=== PATIENT | male | born 1975 | race Caucasian/White ===

== ENCOUNTER 2017-10-20 13:39 | Day surgery (SDC) | payer BC ==
[~2017-10-20] VITALS: Ht 193 cm; Wt 93.0 kg
[~2017-10-20 13:39] MED LIST: EPINEPHRINE 1 MG/ML, 1ML ONE; GLUC1CAP18 PO; IBUP-1222 PO; LIDOCAINE 1%, 50ML ONE; ROPIvacaine/PF 0.5%, 30 ML ONE
[2017-10-20 14:00] VITALS: BP 125/81
[2017-10-20] MEDS ORDERED: LACTATED RINGERS 1,000 ML IV SCH (14:03)
[2017-10-20] MEDS ORDERED: FAMOTIDINE 20 MG TABLET ONE (14:09)
[2017-10-20] MEDS ORDERED: ACETAMINOPHEN 500 MG TABLET ONE (14:09)
[2017-10-20] MEDS ORDERED: GABAPENTIN 300 MG CAPSULE ONE (14:10)
[2017-10-20] MEDS ORDERED: MIDAZOLAM 1 MG/ML, 2ML ONE (14:16)
[2017-10-20] MEDS ORDERED: FENTANYL PF 100 MCG/2ML ONE ×2 (14:16→15:36)
[2017-10-20] MEDS ORDERED: OXYcodone IR 5MG TABLET ONE (14:16)
[2017-10-20] MEDS ORDERED: GABAPENTIN 300 MG CAPSULE PO ONE (14:30)
[2017-10-20] MEDS ORDERED: OXYcodone IR 5MG TABLET PO ONE (14:30)
[2017-10-20] MEDS ORDERED: ACETAMINOPHEN 500 MG TABLET PO ONE (14:30)
[2017-10-20] MEDS ORDERED: FAMOTIDINE 20 MG TABLET PO ONE (14:30)
[2017-10-20] MEDS ORDERED: DEXAMETHASONE 4 MG/ML, 1ML ONE (14:38)
[2017-10-20] MEDS ORDERED: CEFAZOLIN 1,000 MG ONE (14:38)
[2017-10-20] MEDS ORDERED: KETOROLAC 30 MG/1 ML ONE (14:38)
[2017-10-20] MEDS ORDERED: PROPOFOL 10 MG/ML, 20ML ONE (14:38)
[2017-10-20] MEDS ORDERED: ONDANSETRON 2MG/ML, 2ML ONE (14:38)
[2017-10-20] MEDS ORDERED: ONDANSETRON 2MG/ML, 2ML IVPush PRN (15:00)
[2017-10-20] MEDS ORDERED: ALBUTEROL SULFATE 2.5 MG/3 ML NPPB PRN (15:00)
[2017-10-20] MEDS ORDERED: MEPERIDINE/PF 25MG/0.5ML IVPush PRN (15:00)
[2017-10-20] MEDS ORDERED: PROMETHAZINE 12.5 MG SUPP PR PRN (15:00)
[2017-10-20] MEDS ORDERED: OXYcodone 5 MG/5 ML ORAL.SOL UDC PO PRN (15:00)
[2017-10-20] MEDS ORDERED: DIAZEPAM 5 MG/ML, 2ML IVPush PRN (15:00)
[2017-10-20] MEDS ORDERED: HYDROcodone/APAP 7.5-325MG/15ML UDC PO PRN (15:00)
[2017-10-20] MEDS ORDERED: MORPHINE SULFATE 4 MG/ML, 1ML IV PRN (15:00)
[2017-10-20] MEDS ORDERED: EPHEDRINE 50 MG/ML, 1ML IVPush PRN (15:00)
[2017-10-20] MEDS ORDERED: MIDAZOLAM 1 MG/ML, 2ML IV PRN (15:00)
[2017-10-20] MEDS ORDERED: PROMETHAZINE 25 MG/ML, 1ML IV PRN (15:00)
[2017-10-20] MEDS: FENTANYL PF 100 MCG/2ML IV PRN ×2 (15:35→15:41)
[2017-10-20] MEDS ORDERED: HYDROcodone/APAP 5/325 TABLET ONE (17:17)
== END 2017-10-20 17:30 | disposition home or self-care (01) ==
LOC: OR 13:39
PROVIDERS: ATTEND Orthopaedic Surgery
DX: S83.281A Other tear of lateral meniscus, current injury, right knee, initial encounter (principal); M65.861 Other synovitis and tenosynovitis, right lower leg; M25.861 Other specified joint disorders, right knee; X58.XXXA Exposure to other specified factors, initial encounter; Y93.89 Activity, other specified; Y92.89 Other specified places as the place of occurrence of the external cause; Y99.8 Other external cause status
CPT/HCPCS: 29881; J0171; J0690; J1100; J1885; J2250; J2405; J2704; J2795; J3010; J3490; J7120

== ENCOUNTER → 2018-05-24 | Outpatient (CLI) | payer BC ==
[~2018-05-24] MED LIST changes: -EPINEPHRINE 1 MG/ML, 1ML ONE; -LIDOCAINE 1%, 50ML ONE; -ROPIvacaine/PF 0.5%, 30 ML ONE
== END | disposition home or self-care (01) ==
LOC: STAR 08:19
PROVIDERS: ATTEND Orthopaedic Surgery
DX: Z02.9 Encounter for administrative examinations, unspecified (principal)

== ENCOUNTER 2018-05-30 14:06 | Day surgery (SDC) | payer BC ==
[~2018-05-30] VITALS: Ht 195.6 cm; Wt 92.3 kg
[~2018-05-30 14:06] MED LIST changes: +LIDOCAINE 1%-EPI 1:100K, 30ML ONE
[2018-05-30] MEDS ORDERED: MIDAZOLAM 1 MG/ML, 2ML ONE (14:23)
[2018-05-30] MEDS ORDERED: FENTANYL PF 250 MCG/5ML ONE (14:24)
[2018-05-30] MEDS ORDERED: LACTATED RINGERS 1,000 ML IV SCH (14:27)
[2018-05-30] MEDS ORDERED: GABAPENTIN 300 MG CAPSULE ONE (14:47)
[2018-05-30] MEDS ORDERED: ACETAMINOPHEN 500 MG TABLET ONE (14:47)
[2018-05-30 14:50] VITALS: BP 117/75
[2018-05-30] MEDS ORDERED: PROPOFOL 10 MG/ML, 20ML ONE (14:52)
[2018-05-30] MEDS ORDERED: ONDANSETRON 2MG/ML, 2ML ONE (14:52)
[2018-05-30] MEDS ORDERED: CEFAZOLIN 1,000 MG ONE (14:52)
[2018-05-30] MEDS ORDERED: DEXAMETHASONE 4 MG/ML, 1ML ONE (14:52)
[2018-05-30] MEDS ORDERED: KETOROLAC 30 MG/1 ML ONE (14:52)
[2018-05-30] MEDS ORDERED: ROPIvacaine/PF 0.5%, 30 ML ONE (15:19)
[2018-05-30] MEDS ORDERED: ROPIvacaine/PF 0.5%, 30 ML INFIL ONE (15:20)
[2018-05-30] MEDS ORDERED: MEPERIDINE/PF 25MG/0.5ML IVPush PRN (15:30)
[2018-05-30] MEDS ORDERED: PROMETHAZINE 25 MG/ML, 1ML IV PRN (15:30)
[2018-05-30] MEDS ORDERED: LABETALOL 5MG/ML, 20ML IV PRN (15:30)
[2018-05-30] MEDS ORDERED: OXYcodone 5 MG/5 ML ORAL.SOL UDC PO PRN (15:30)
[2018-05-30] MEDS ORDERED: hydrALAzine 20 MG/ML, 1ML IV PRN (15:30)
[2018-05-30] MEDS ORDERED: ALBUTEROL SULFATE 2.5 MG/3 ML NPPB PRN (15:30)
[2018-05-30] MEDS ORDERED: HYDROmorphone 1 MG/ML, 1ML IV PRN (15:30)
[2018-05-30] MEDS ORDERED: ACETAMINOPHEN 650 MG/20.3 ML UDC ONE (15:40)
[2018-05-30] MEDS ORDERED: FENTANYL PF 100 MCG/2ML ONE (15:41)
[2018-05-30] MEDS ORDERED: OXYcodone 5 MG/5 ML ORAL.SOL UDC ONE (15:41)
[2018-05-30] MEDS: FENTANYL PF 100 MCG/2ML IV PRN ×2 (15:43→15:52)
== END 2018-05-30 17:30 | disposition home or self-care (01) ==
LOC: OR 14:06
PROVIDERS: ATTEND Orthopaedic Surgery
DX: S83.232A Complex tear of medial meniscus, current injury, left knee, initial encounter (principal); S83.282A Other tear of lateral meniscus, current injury, left knee, initial encounter; X58.XXXA Exposure to other specified factors, initial encounter; M65.862 Other synovitis and tenosynovitis, left lower leg; Y93.89 Activity, other specified; Y92.89 Other specified places as the place of occurrence of the external cause; Y99.8 Other external cause status; Z79.82 Long term (current) use of aspirin; Z72.89 Other problems related to lifestyle
CPT/HCPCS: 29880; J0690; J1100; J1885; J2250; J2405; J2704; J2795; J3010; J3490; J7120